=== PATIENT | female | born 2000 | race Caucasian/White ===

== ENCOUNTER 2022-01-31 18:48 | Emergency (ER) | payer OTHER, SELFPAY ==
[2022-01-31 18:50] VITALS: BP 129/84; PULSE 116; RESP 18; TEMP 37.5; O2SAT 97; BMI 20.5
[2022-01-31 19:16] LABS: COVID-19 Test Negative (Negative); IDNOW Serial# 16C4AD1C; Influenza A Positive (Negative); Influenza B2 Negative (Negative)
--- NOTE | 2022-01-31 19:19 | ED.URI ---
HPI - URI/Sore Throat General Chief Complaint: Upper Respiratory Symptoms Stated Complaint: body aches/congestion Source: patient Mode of arrival: ambulatory Limitations: no limitations History of Present Illness HPI Narrative: 21-year-old female presents with congestion, body aches, and headache since Wednesday started with subjective fevers yesterday. MD elicited complaint: fever and nasal congestion Onset (ago): day(s) (2) Consistency: constant Severity: moderate Description of mucous: clear Able to tolerate fluids by mouth: Yes Exacerbating factors: nothing Relieving factors: nothing Context: sick contacts Associated symptoms: fever, chills, myalgias, headache and nasal congestion Treatments prior to arrival: none Related Data Allergies Allergy/AdvReac Type Severity Reaction Status Date / Time SEASONAL ALLERGIES Allergy Mild WATERY Uncoded 01/31/22 18:54 ITCHY EYES SNEEZING Review of Systems Review of Systems: Constitutional: Positive Fever, positive Chills ENT/Mouth: No Ear Pain, No Hoarseness, No sore throat Eyes: No Eye Pain, No Swelling, No Redness, No Foreign Body Cardiovascular: No Chest Pain, No SOB Respiratory: No Cough, No Dyspnea Gastrointestinal: No Nausea, No Vomiting, No Diarrhea, No abdominal Pain Genitourinary: No Dysuria, No Hematuria Musculoskeletal: No joint pain, positive Myalgias, No Joint Swelling Skin: No Skin lacerations, No rash Neuro: No Weakness, No Numbness, No Paresthesias, No Loss of Consciousness, No Dizziness, positive Headache Psych: No Anxiety/Panic, No Depression Heme/Lymph: no easy bruising, no Lymphadenopathy Endocrine: No Polyuria, No Polydipsia Yes all other systems are reviewed and are negative [facility] Past Medical History Attestation statement: The following information was validated with the patient. Source: old records reviewed Medical History No known health problems Social History Social History Advance Directives: No Patient : No Physical Exam Vital Signs: Vital Signs: Last Vital Signs Temp 99.5 F 01/31/22 18:50 Pulse 104 H 01/31/22 19:45 Resp 17 01/31/22 19:45 BP 129/84 01/31/22 18:50 Pulse Ox 98 01/31/22 19:45 BMI result Body Mass Index 20.5 Appearance: Alert. Oriented X3. No acute distress. Eyes: Pupils equal, round and reactive to light. ENT: Pharynx normal. Neck: Normal inspection. Neck supple. CVS: Tachycardic heart rate and rhythm. Pulses normal. Respiratory: No respiratory distress. Breath sounds normal. Abdomen: Soft and nontender. Skin: Skin warm and dry. Normal skin color. Normal skin turgor. Extremities: No lower extremity edema. Gait well-balanced well coordinated. Neuro: No motor deficit. No sensory deficit. Cranial nerves 2-12 intact. Course Course Course Narrative: 21-year-old female presents with 2 days of flu-like symptoms. Patient is afebrile and nontoxic appearing. Able to eat and drink without difficulty. Tested positive for influenza A while in the emergency department waiting room. Will provide supportive measures and discharged home. MDM - URI/Sore Throat Differential Diagnosis Differential diagnosis: Likely upper respiratory infection, viral infection and influenza Medical Records Attestation: I reviewed the patient's medical records. Lab Data Attestation: I reviewed the patient's lab results. Labs: Lab Results 01/31/22 01/31/22 Range/Units 18:55 18:55 COVID-19 (NIKKI) Negative (Negative) COVID-19 Clin Com See Note Influenza Type A (ALBERTO) Positive A (Negative) Influenza Type B (ALBERTO) Negative (Negative) Influenza A & B Note See Note Discharge Plan Discharge Clinical Impression: Influenza Patient Disposition: Home, Self-Care Instructions: Influenza (ED) Additional Instructions: You were evaluated for upper respiratory symptoms. You tested positive for influenza A. Please alternate Tylenol 650 mg every 6 hours and Motrin 600 mg every 6 hours as needed for muscle aches and fever management. Drink plenty of fluids. Thank you for choosing this emergency department for evaluation. Please follow-up with primary care physician as needed. Return to the emergency department for any new, concerning, or worsening symptoms. Stand Alone Forms: Work/School Release Interventions: ED Discharge Assessment Last Done: 01/31/22 19:45 Discharge Date/Time: 01/31/22 19:47
[2022-01-31 19:45] VITALS: PULSE 104; RESP 17; O2SAT 98
== END 2022-01-31 19:47 | disposition home or self-care (01) ==
PROVIDERS: Emergency Provider Emergency Medicine Emergency Medical Services; PCP Pediatrics
DX: J10.1 Influenza due to other identified influenza virus with other respiratory manifestations (principal); Z20.822 Contact with and (suspected) exposure to COVID-19
CPT/HCPCS: 87502; 87635; 99283

== ENCOUNTER 2025-07-23 15:23 | Outpatient (AMB) | payer OTHER, SELFPAY ==
--- NOTE | 2025-07-23 15:28 | A.OFFPC_ITS ---
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 Sensing Technologist Required: No Accompanied by: Self / Same As Patient Allergies SEASONAL ALLERGIES Allergy (Mild, Uncoded 01/31/22 18:54) WATERY ITCHY EYES SNEEZING Tobacco use date assessed: 07/23/25 Dental Screening Dental Screen Date: 07/23/25 Did you have a dental visit in the last 12 months?: Yes Did you have a dental problem in the last 6 months where you did not have access to dental care?: No Was dental information given to patient?: Patient has dentist HPI HPI Comments History of Present Illness Details History of Present Illness The patient is a 25-year-old female presenting for a physical examination and evaluation of multiple concerns including back pain, migraines, and anxiety. Back pain: - The patient reports experiencing diffu se back pain affecting the entire back, which disrupts her sleep and requires hot showers for relief. - There is no history of trauma or scoli osis, but a family history of fibromyalgia is noted. Migraine: - The patient experiences severe migrain es characterized by light sensitivity and the need to be in a dark environment. - She has not seen a specialist but uses [id number] ibuprofen for relief. Anxiety: - The patient reports high levels of anx iety, exacerbated in public settings, and has a history of anxiety in the family. - She has not been on medication and pre fers non-pharmacological interventions. Heavy menstrual bleeding: - The patient reports lifelong heavy men strual bleeding without a known family history of fibroids. Earwax buildup: - The patient frequently experiences ear wax buildup requiring medical intervention for removal. Review of Systems - Musculoskeletal: Reports diffuse back pain disrupting sleep. - Neurological: Reports severe migraines with light sensitivity. - Psychiatric: Reports high levels of an xiety, exacerbated in public settings. - Hematologic: Reports heavy menstrual b leeding. - ENT: Reports frequent earwax buildup. 10-point ROS reviewed and negative excep t as noted in HPI Past Medical History - No significant past medical history re ported. Health Maintenance - Preventative care: Comprehensive metab olic panel, CBC, thyroid function tests, hepatitis B and C, HIV, lipid panel, vitamin D, B12, folate, and STI screening discussed. Physical Exam General: Well-appearing, in no acute distress. Vital signs: Within normal limits. HEENT: Normocephalic, atraumatic. PERRLA, EOMI. Conjunctiva clear, sclera anicteric. Oropharynx clear, mucous membranes moist. TMs intact bilaterally. Noted buildup of ear wax; Debrox recommended. Neck: Supple, no lymphadenopathy, no thyromegaly, no JVD or carotid bruits. Cardiovascular: RRR, normal S1/S2, no murmurs, rubs, or gallops. Peripheral pulses 2+ and symmetric. No edema. Respiratory: Lungs clear to auscultation bilaterally, no wheezes, rales, or rhonchi. Normal effort. Abdomen: Soft, non-tender, non-distended. Normoactive bowel sounds. No hepatosplenomegaly, no masses. MSK: Full range of motion, no joint swelling or deformity. Normal gait. Reports generalized back pain, particularly in the traps and lower back, affecting sleep and comfort. Skin: Warm, dry, intact. No rashes, lesions, or pallor. Neuro: Alert and oriented x3. Cranial nerves II-XII intact. Strength 5/5 throughout. Sensation intact. Reflexes 2+ symmetric. Normal coordination and gait. Reports severe migraines with light sensitivity. Psych: Reports high levels of anxiety, worsened by public situations and driv ing. Appropriate mood and affect. Normal judgment and insight. Referral to behavioral health suggested. Plan 1. Back Pain - A follow-up visit is recommended to ev aluate for fibromyalgia, given the family history and symptoms. 2. Migraine - The patient is advised to maintain a m igraine journal to identify potential triggers and patterns. - Ibuprofen 800 mg is prescribed for sym ptomatic relief. 3. Anxiety - Referral to behavioral health for ther apy is recommended. - The patient prefers non-pharmacologica l interventions for anxiety management. 4. Heavy Menstrual Bleeding - Blood tests will be conducted to asses s for anemia due to heavy menstruation. 5. Earwax Buildup - Debrox is recommended for earwax remov al, with instructions on proper use provided. Discussion Notes During the visit, we discussed the patient's back pain, migraines, anxiety, and heavy menstrual bleeding. I recommended a comprehensive metabolic panel and other blood tests to rule out any underlying conditions contributing to her symptoms. We also talked about the importance of maintaining a migraine journal to identify triggers and patterns. For her anxiety, I suggested a referral to behavioral health for therapy, emphasizing non-pharmacological interventions. Additionally, I provided instructions on using Debrox for earwax removal and discussed the potential need for a follow-up visit to evaluate for fibromyalgia. Patient was informed and verbally consented to the use of an ambient scribe for clinic note documentation during this visit. Patient Instructions - Follow up with behavioral health for t herapy regarding anxiety. - Use Debrox as directed for earwax andrew gauri. - Maintain a migraine journal to track p otential triggers and patterns. - Schedule a follow-up visit to discuss fibromyalgia evaluation. - Complete blood tests as ordered to ass ess overall health and rule out underlying conditions. Total time spent caring for the patient today was 30 minutes. This includes time spent before the visit reviewing the chart, time spent documenting, and time spent performing a medically necessary evaluation, counseling on diagnoses, care coordination, ordering appropriate tests, ordering appropriate medications, [facility] Medical History (Updated 07/23/25 @ 15:47 by Tiburcio Calix MD) Anxiety No known health problems Family History (Updated 07/23/25 @ 15:35 by Domingo Phillips MA) Father No problems noted. Mother Fibromyalgia Social History (Updated 07/23/25 @ 15:34 by Domingo Phillips MA) Housing: House Alcohol intake: current Alcohol intake frequency: does not drink Patient Tobacco Use Status: Never used Tobacco service: No Current occupational status: employed Cognitive needs: No Hearing needs: No Vision needs: No Questionnaire PHQ-9 Over the last 2 weeks, how often have you been bothered by any of the following problems? 1. Little interest or pleasure in doing things: several days 2. Feeling down, depressed, or hopeless: several days 3. Trouble falling or staying asleep, or sleeping too much: several days 4. Feeling tired or having little energy: more than half the days 5. Poor appetite or overeating: more than half the days 6. Feeling bad about yourself - or that you are a failure or have let yourself or your family down: several days 7. Trouble concentrating on things, such as reading the newspaper or watching television: not at all 8. Moving or speaking so slowly that other people could have noticed. Or the opposite - being so fidgety or restless that you have been moving around a lot more than usual: not at all 9. Thoughts that you would be better off or of hurting yourself in some way: not at all Total score: 8 Source: Developed by Drs. Cristhian Wilkinson, Katina Perez, Lionel Gurrola and colleagues, with an educational mary from [employer]. Thrive Questionnaire Date Thrive assessed: 07/23/25 I am a: Patient What is your living situation today?: I have a steady place to live Within the past 12 months, did the food you bought not last and you didn't have the money to get more?: Never true Within the past 12 months, did you worry whether your food would run out before you got money to buy more?: Never true Do you have trouble paying for medicines?: I choose not to answer this question Do you have trouble getting transportation to medical appointments?: No Do you have trouble paying your heating and electricity bill?: I choose not to answer this question Do you have trouble taking care of your child, family member or friend?: No Do you have trouble with day-to-day activities such as bathing, preparing meals, shopping, managing finances, etc.?: No Are you currently unemployed and looking for a job?: No Are you interested in more education?: I choose not to answer this question Please select the resources that you would like help with: None Currently or been in a relationship where the following occur: No concerns reported THRIVE Score: 0 AUDIT C Alcohol Use Questionnaire (AUDIT-C) 1. How often do you have a drink containing alcohol?: Monthly or less 2. How many drinks containing alcohol do you have on a typical day when you are drinking?: 1 or 2 3. How often do you have six or more drinks on one occasion?: Never Total Score: 1 PANCHO-7 AMB Questionnaire PANCHO-7 Date PANCHO - 7 assessed: 07/23/25 Feeling nervous, anxious, or on edge: 3 = Nearly every day Not being able to stop or control worryin = Nearly every day Worrying too much about different things: 2 = More than half the days Trouble relaxin = Several days Being so restless that it is hard to sit still: 2 = More than half the days Becoming easily annoyed or irritable: 2 = More than half the days Feeling afraid as if something awful might happen: 1 = Several days Total PANCHO-7 score (0-4 normal; 5-9 mild; 10-14 moderate; 15-21 severe): 14 Source: Developed by Drs. Cristhian Wilkinson, Katina Perez, Lionel Gurrola and colleagues, with an educational mary from [employer]. Physical exam (Primary Care) Vital Signs: Last Vital Signs Temp 98.3 F 07/23/25 15:32 Pulse 72 07/23/25 15:32 Resp 16 07/23/25 15:32 BP 106/58 L 07/23/25 15:32 Pulse Ox 99 07/23/25 15:32 Oxygen Delivery Method Room Air 07/23/25 15:32 BMI result Body Mass Index 22.8 Tobacco/Smoking Status: Tobacco use Status Tobacco use date assessed 07/23/25 07/23/25 15:30 Patient Tobacco Use Status Never used Tobacco 07/23/25 15:34 PHQ-9: PHQ-9 Score PHQ-9: Total score 8 07/23/25 15:30 Thrive Assessment: Date of Thrive Assessment Date Thrive assessed 07/23/25 07/23/25 15:30 Currently or been in a relationship where the following occur: No concerns reported Coding Level of Care Code New Pt Level 4 (00564) Diagnoses Anxiety F41.9 Back pain M54.9 Menorrhagia N92.0 Migraine G43.909 Bilateral impacted cerumen H61.23 Assessment & Plan Assessment & Plan (1) Anxiety: Code(s): F41.9 - Anxiety disorder, unspecified Category: Medical (2) Back pain: Code(s): M54.9 - Dorsalgia, unspecified (3) Menorrhagia: Code(s): N92.0 - Excessive and frequent menstruation with regular cycle (4) Migraine: Code(s): G43.909 - Migraine, unspecified, not intractable, without status migrainosus (5) Bilateral impacted cerumen: Code(s): H61.23 - Impacted cerumen, bilateral Plan Orders: Orders Complete Blood Count Auto Diff Today Z13.9 - Encounter for screening, unspecified Hepatitis C Antibody Today Z13.9 - Encounter for screening, unspecified TSH reflex Free T4 Today Z13.9 - Encounter for screening, unspecified Vitamin D 1,25 dihydroxy Today Z13.9 - Encounter for screening, unspecified CT NG by PCR Urine Today Z13.9 - Encounter for screening, unspecified Syphilis Screen Today Z13.9 - Encounter for screening, unspecified Comprehensive Met. Panel Today Z13.9 - Encounter for screening, unspecified Hemoglobin A1c Today Z13.9 - Encounter for screening, unspecified Hepatitis B Surface Antibody Today Z13.9 - Encounter for screening, unspecified Hepatitis B Surface Antigen Today Z13.9 - Encounter for screening, unspecified HIV Ab/Ag Today Z13.9 - Encounter for screening, unspecified Lipid Panel Today Z13.9 - Encounter for screening, unspecified Magnesium Today Z13.9 - Encounter for screening, unspecified UA CC w/rflx Micro + Cult Today Z13.9 - Encounter for screening, unspecified Vitamin B12 and Folate Today Z13.9 - Encounter for screening, unspecified Chlamydia Species Ab Panel Today Z13.9 - Encounter for screening, unspecified Referrals Nurse Navigator Referral F41.9 - Anxiety disorder, unspecified, Z13.9 - Encounter for screening, unspecified Medications: New ibuprofen 800 mg PO Q8H 30 tabs 0RF carbamide peroxide 6.5% (Debrox) 5 drps otic (ears) Q12H 15 mL 0RF 4 days
[2025-07-23 15:32] VITALS: BP 106/58; PULSE 72; RESP 16; TEMP 36.8; O2SAT 99; BMI 22.8
--- OUTSIDE RECORDS SUMMARY | 2025-07-23 17:48 | XMS_ITS | Encounter Summary ---
Author Organization [facility] Address [address] [place] [address] Phone Care Team Providers Care Batch Records Clerk Name Role Phone Martha Miller MD Primary Care Provider [phone] Encounter Details Date Type Department Care Team (Late st Contact Info) Description 06/03/2017 Conversion Encounter [facility] [address] [place] [address] Social History Tobacco Use Types Packs/Day Years Used Date Smoking Tobacco: Never Comments:Never smoker Comments Unknown Sex and Gender Information Value Date Recorded Sex Assigned at Not on file Legal Sex Female 5:09 PM EDT Gender Identity Female 12/16/2020 10:15 AM EST Sexual Orientation Straight 05/06/2022 2: 59 PM EDT documented as of this encounter Plan of Treatment Not on file documented as of this encounter Visit Diagnoses Not on filedocumented in this encounter Care Teams Batch Records Clerk Relationship Specialty Start Date End Date Martha Miller MD [address] [place] [address] PCP - General 05/28/17 05/24/23 documented as of this encounter
--- OUTSIDE RECORDS SUMMARY | 2025-07-23 17:48 | XMS_ITS | Clinical Summary ---
Author Organization [facility] Address [address] [place] [phone] Phone Care Team Providers Care Call Center Rn Name Role Phone Unavailable Primary Care Provider Unavailabl e Allergies Active Allergy Reactions Criticality Noted Date Comments Environmental 02/20/2020 Itchy eyes/throat, sneezing Medications ibuprofen 200 MG capsuleIndicatio ns:Acute URI Take 2 capsules (400 mg total) by mouth every 6 (six) hours as needed for pain or fever (For fever or pain). 120 capsule 7 Active Additional Information Patient not taking.Reported on 09/25/2022 fluticasone (Flonase) 50 MCG/ACT nasal sprayIndications :Allergic rhinitis, unspecified seasonality, unspecified trigger Administer 2 sprays into each nostril daily. 1 Units 5 0 Active Additional Information Patient not taking.Reported on 08/20/2021 loratadine (Claritin) 10 MG tabletIndication s:Allergic rhinitis, unspecified seasonality, unspecified trigger Take 1 tablet (10 mg total) by mouth daily. 30 tablet 5 2 Active Additional Information Patient not taking.Reported on 09/25/2022 spironolactone 100 MG tabletIndication s:Acne vulgaris Take 1 tablet (100 mg total) by mouth daily. 30 tablet 3 2 Active cetirizine (ZyrTEC Allergy) 10 MG tabletIndication s:Seasonal allergic rhinitis due to pollen Take 1 tablet (10 mg total) by mouth nightly as needed for allergies. 30 tablet 6 2 Active tretinoin 0.025 % creamIndications :Acne vulgaris Apply topically nightly. 45 g 2 Active Additional Information Patient not taking.Reported on 09/25/2022 Active Problems Problem Noted Date Diagnosed Date Refused influenza vaccine 09/25/2022 Bilateral impacted cerumen 07/28/2022 Personal history of COVID-19 10/30/2021 Overview (10/30/2021): 10/27/21 -mild illness Assessment & Plan (02/04/2022 8:55 AM EDT): 10/27/21 -mild illness COVID-vaccine strongly encouraged today but declined Generalized abdominal pain 05/20/2021 Assessment & Plan (08/20/2021 4:42 PM EDT): Labs done May 2021 were normal Patient did not keep her GI appointment. The medical home lighting adviser, Delano Gooden, has been trying to reach patient to help her set up her GI appointment but Krzysztofalber feels she is too busy with work. Overall she feels like her stomach is better and she does not need to see GI. Assessment & Plan (05/20/2021 11:24 AM EDT): Labs have been normal 09/2019. Will repeat prior to GI eval so they have more recent values. She is due for lipids & CBC that were ordered 05/06/21 but not obtained Has appointment with GI for first eval 05/23/21 DUB (dysfunctional uterine bleeding) 05/06/2021 Overview (05/06/2021): 1st Depo was 11/29/19. 2nd depo was 02/15/20. Did not keep appt for 3rd dose. Forgot to get it. Restarted Depo 06/26/20 Assessment & Plan (05/06/2022 2:58 PM EDT): Here for Depo today. Depo ordered 150 mg IM x1 Next dose of Depo in 3 months. Patient started Depo 11/29/2019 but was lost to follow-up and restarted on 06/26/2020. This fall she will be 2 years on Depo. Discussed with Ignacia that she should start thinking about other options such as Nexplanon or an IUD. Bone health reviewed. Safe sex reviewed. Assessment & Plan (08/20/2021 4:42 PM EDT): Uses Depo for her periods. Gets her menses around the time she is due for Depo. Usually just spots. Wishes to continue Depo. Follow-up in 3 months for next Depo Assessment & Plan (05/20/2021 11:37 AM EDT): Depo 150 mg IM given. Ignacia Thornton brought her own Depo with her today Next appointment for Depo is in 3 months Denies SA - ever Assessment & Plan (05/06/2021 10:59 AM EDT): Last Depo was 03/04/2021. Is on Depo for dysfunctional uterine bleeding, is not sexually active. Could not remember to take OCPs so decided to switch to Depo 11/2019. Due for Depo next month, first available day May 20 Counseling and coordination of care 05/06/2021 Assessment & Plan (05/20/2021 11:36 AM EDT): [facility] with [facility]ano Gooden, today Needs help connecting with chiropractor. Feels like she has a pinched nerve in her neck. We have discussed contacting the chiropractor in the past but she has been too busy to do this. She feels the chiropractor really helps. We will ask the medical home lighting adviser to assist her in setting up this appointment Acne vulgaris 12/17/2020 Assessment & Plan (05/17/2021 2:00 PM EDT): Offered OCP; she prefers to stay on Depo for contraception. Will start spironolactone 100 mg daily. CeraVe cleanser. Continue tretinoin qHS. Assessment & Plan (05/06/2021 10:58 AM EDT): Tretinoin, Clindagel and benzyl peroxide gel were last filled 08/05/2020 No current issues, no current meds Assessment & Plan (12/17/2020 11:30 AM EST): Using daily but last refilled 08/05/20 Out of one of the meds but Ignacia not sure which one Offered minocin but patient says she already has issues with ARORA & stomach issues so decided to wait on oral meds Ignacia will call with name of med to refill. Encourage daily use OK to schedule with derm if no better in 1 month Mask wearing may be triggering acne Anxiety disorder 08/04/2020 Assessment & Plan (05/06/2021 10:58 AM EDT): Was seen at [facility] in the past. No current therapist. Ignacia feels she does not need to see anybody at this time Encounters Date Type Department Care Team Description 07/23/2025 Telephone [facility] [address] [id number] Angie Murdock MD Medical Records 07/20/2025 Telephone [facility] [address] [place] [address] Angie Murdock MD medical records from Last 3 Months Immunizations Immunization Administration Dates Next Due DTaP 5 01/13/2007, 4,2002,08/07,2002 HPV Vaccine 9 Valent 06/25/2015 HPV, Quadrivalent 06/26/2014,04/10/2013 Hep A, ped/adol 06/25/2015,06/26/2014 Hep B, ped/adol 03/06/2003,2002,2002 Hib (PRP-T) 01/21/2004, 3,2002,06/13 IPV 01/13/2007, 3,2002,06/13 Influenza, injectable, quadrivalent 07/23/2016 Influenza, injectable, quadr ivalent, preservative free 06/26/2020,09/23/2018,06/25/2015,06/26 MMR 06/06/2003 MMRV 01/13/2007 Meningococcal Conj (Menactra) MCV4P 09/23/2018,0 04/10/2013 Pneumococcal Conjugate 07/13/2005,2002,2002,06/13 Tdap 04/10/2013 Varicella 06/06/2003 Family History Medical History Relation Name Comments Asthma Brother Amador No Known Problems Father Guicho No Known Problems Half-Sister No Known Problems Mother Vikki No Known Problems Sister Vikki Relation Name Status Comments Brother Amador Alive Father Guicho Alive Father: Alive a nd well Half-Brother Alive Half brother (P ): cleft palate, Alive and well Half-Sister Alive Half sister (P) : Alive and well Mother Vikki Alive Mother: Alive a nd well Other Family history of Elevated cholesterol, Family history of Asthma, Family history of Diabetes mellitus, Family history of Seizure disorder Sister Vikki Alive Social History Tobacco Use Types Packs/Day Years Used Date Smoking Tobacco: Never Smokeless Tobacco: Never Comments:Never smoker Alcohol Use Standard Drinks/Week Comments No 0 (1 standard drink = 0.6 oz pur e alcohol) Hunger/Food Answer Date Recorded In the last 12 months, did y ou or your family ever eat less than you felt you should because there wasn't enough money for food? No 05/05/2021 Stable Housing Answer Date Recorded Are you worried that in the next 2 months you may not have stable housing? No 05/05/2021 Transportation Concerns Answer Date Rec orded In the last 12 months, have you or your family ever had to go without healthcare because you didn't have a way to get there? No 05/05/2021 Hazards in Home Answer Date Recorded Think about the place you li ve. Do you have problems with any of the following? Pests (mice or roaches), mold, no/not working smoke detectors, water leaks, no window guards. No 2020 Financing Utilities Answer Date Recorde d In the last 12 months, has t he electric, gas, oil, or water company threatened to shut off your services in your home? No 05/05/2021 Safety at Home Answer Date Recorded Are you or your family worried about feeling saf e in your home? No 05/05/2021 Outside Support Answer Date Recorded Do you feel that you need mo re support from other people or programs to help you care for yourself or your family? No 05/05/2021 Understanding Health Concerns Answer Da te Recorded Do you need help understandi ng your or your child's healthcare needs (diagnosis, medications, plan, etc.)? No 05/05/2021 Financing Health Concerns Answer Date R ecorded In the last 12 months, was t here a time when your child needed to see a doctor or get medications or supplies but could not because of cost? No 05/05/2021 Missing School or Work Answer Date Jg rded Did you or your child miss s chool or work because of a health problem that could have been avoided? No 05/05/2021 Comments No Sex and Gender Information Value Date Recorded Sex Assigned at Not on file Legal Sex Female 5:09 PM EDT Gender Identity Female 12/16/2020 10:15 AM EST Sexual Orientation Straight 05/06/2022 2: 59 PM EDT Last Filed Vital Signs Vital Sign Reading Time Taken Comments Blood Pressure 106/69 09/25/2022 2:48 PM EST Pulse 73 09/25/2022 2:48 PM EST Temperature 36.8 C (98.3 F) 09/25/2022 2:48 PM EST Respiratory Rate - - Oxygen Saturation - - Inhaled Oxygen Concentration - - Weight 49.4 kg (109 lb) 09/25/2022 2:48 PM EST Height 154.3 cm (5' 0.75 ) 06/11/2022 11:30 AM E DT Body Mass Index 20.77 06/11/2022 11:30 AM EDT Plan of Treatment Health Maintenance Due Date Last Done Comments HIV Screening 2017 Men B Vaccine (1 of 2 - Standard) 2018 Hepatitis C Screening 2020 DTaP,Tdap,and Td Vaccines (7 - Td or Tdap) 04/10/2023 04/10/2013, 01/13/2007, 01/21/2004, Additional history exists Chlamydia and Gonorrhea Screening 10/18/2024 06/11/2022, 05/06/2022, 05/06/2021, Additional history exists Influenza Vaccines (#1) 2025 06/26/20, 09/23/2018, 07/23/2016, Additional history exists COVID-19 Vaccine (1 - 2024-2 6 season) 2025 Hepatitis B Vaccines Completed 03/06/2003, 2002, 2002 HIB Vaccines Completed 01/21/2004, 10/18, 2002, Additional history exists Pneumococcal Vaccine Completed 07/13/2005, 2002, 2002, Additional history exists IPV Vaccines Completed 01/13/2007, 02/16, 2002, Additional history exists MMR Vaccines Completed 01/13/2007, 06/06/2003 Varicella Vaccines Completed 01/13/2007, 06/06/2003 HPV Vaccines Completed 06/25/2015, 06/2014, 04/10/2013 Hepatitis A Vaccines Completed 06/25/2015, 06/26/20 14 Meningococcal Vaccine Completed 09/23/2018, 013 Procedures * Due to [facility] law, this organization might not be sharing sensitive test results. Procedure Name Priority Date/Time Associated Diagnosis Comments CHLAMYDIA AND GONORRHEA, AMPLIFIED Routine 06/11/2022 12:06 PM EDT Encounter for screening examination for chlamydial infection from Last 3 Months or Most Recently Relevant to Health Maintenance Results * Due to [place] law, this organization might not be sharing sensitive test results. * Chlamydia and Gonorrhoea, Amplified (06/11/2022 12:06 PM EDT) Chlamydia Trachomatis, DNA Probe NEGATIVE (NEG) [facility] Comment: No Chlamydia Trachomatis RNA detected in this patient's sample (REFERENCE RANGE/NORMAL VALUE: NOT DETECTED) Note: This test uses oil lease broker- mediated amplification method to detect rRNA from C. Trachomatis URINE GC AMP PROBE NEGATIVE (NEG) [facility] Comment: No Neisseria Gonorrhoeae RNA detected in this patient's sample (REFERENCE RANGE/NORMAL VALUE: NOT DETECTED) NOTE: This test uses oil lease broker-mediated amplification method to detect rRNA from N.Gonorrhoeae. A negative result does not preclude infection. In the case of a negative urine result, testing of an endocervical(female) or urethral (male) specimen is recommended if there is high clinical suspicion of infection. Due to very high sensitivity of Nucleic Acid Amplification Test, false positive results may occur. Therefore, specimen handling is extremely important. In patients in whom the disease is unlikely, additional sample for testing should be considered after an initial positive result. The performance characteristics of this test have not been evaluated in children. The Aptima Combo2 assay is not intended for the evaluation of suspected sexual abuse or for other medico-legal indications. The ordering provider should assess if the patient had consensual sex without risk of sexual abuse. Consult the [facility] if needed. Contact phone number . Therapeutic failure or success cannot be determined with the Aptima Combo2 assay since nucleic acid may persist following appropriate antimicrobial therapy. The Centers for Disease Control and Prevention (CDC) recommends confirmatory retesting using culture or a different nucleic acid amplification test when positive results occur, if indicated. Testing performed or reported by [facility], a Service of [facility], [address], [place] [address] Tho Reynolds MD, Culled Fruit Packer [facility]# [id number] Urine (Urine) 06/11/2022 12: 06 PM EDT 06/11/2022 9:40 PM EDT us Adriana Wilson DO LAB MICROBIOLOGY - GENERAL ORDER SANG Final Result [facility] from Last 3 Months or Most Recently Relevant to Health Maintenance
--- OUTSIDE RECORDS SUMMARY | 2025-07-23 17:48 | XMS_ITS | Encounter Summary ---
Author Organization [facility] Address [address] [place], [place] [id number] Phone Care Team Providers Care Clean Up Supervisor Name Role Phone Martha Miller MD Primary Care Provider [phone] Reason for Visit * Reason Comments Med Refill Encounter Details Date Type Department Care Team ([facility] st Contact Info) Description 12/16/2020 Refill [facility] [address] [place] [address] Martha Miller MD [address] [place] [address] Encounter for initial prescription of injectable contraceptive Social History Tobacco Use Types Packs/Day Years Used Date Smoking Tobacco: Never Smokeless Tobacco: Never Comments:Never smoker Alcohol Use Standard Drinks/Week Comments No 0 (1 standard drink = 0.6 oz pur e alcohol) Hunger/Food Answer Date Recorded No 07/13/2020 Stable Housing Answer Date Recorded No 07/13/2020 Transportation Concerns Answer Date Rec orded No 07/13/2020 Hazards in Home Answer Date Recorded No 08/31/2020 Financing Utilities Answer Date Recorde d No 08/31/2020 Safety at Home Answer Date Recorded No 08/31/2020 Outside Support Answer Date Recorded No 08/31/2020 Understanding Health Concerns Answer Da te Recorded No 08/31/2020 Financing Health Concerns Answer Date R ecorded No 08/31/2020 Missing School or Work Answer Date Jg rded No 08/31/2020 Comments No Sex and Gender Information Value Date Recorded Sex Assigned at Not on file Legal Sex Female 5:09 PM EDT Gender Identity Female 12/16/2020 10:15 AM EST Sexual Orientation Straight 05/06/2022 2: 59 PM EDT documented as of this encounter Miscellaneous Notes * Telephone Encounter - Janis Roldan LPN - 12/17/2020 8:54 AM EST Duplicate request documented in this encounter Plan of Treatment Not on file documented as of this encounter Visit Diagnoses Diagnosis Encounter for initial prescription of injectable contraceptive documented in this encounter Care Teams Clean Up Supervisor Relationship Specialty Start Date End Date Martha Miller MD [address] [place] [address] [place] [address] PCP - General 05/28/17 05/24/23 documented as of this encounter
--- OUTSIDE RECORDS SUMMARY | 2025-07-23 17:48 | XMS_ITS | Encounter Summary ---
Author Organization [facility] Address [address] [place] [phone] Phone Care Team Providers Care Furniture Installer Name Role Phone Unavailable Primary Care Provider Unavailabl e Reason for Visit * Reason Onset Date Comments Medical Records 07/23/2025 Encounter Details Date Type Department Care Team ([facility] Contact Info) Description 07/23/2025 Telephone [facility] [place] [address] [place] [address] Angie Murdock MD [address] [place] [address] Medical Records Social History Tobacco Use Types Packs/Day Years [...] encounter Miscellaneous Notes * Telephone Encounter - Elsa Buckley - 07/23/2025 9:49 AM EDT Authorization for Release of Records received on 07/17/25 completed by Patient. Records Faxed on 07/23/25 by Elsa Buckley. Records Faxed to [facility] at [phone] to/by Elsa Buckley on 07/23/25. documented in this encounter Plan of Treatment Not on file documented as of this encounter Visit Diagnoses Not on filedocumented in this encounter
--- OUTSIDE RECORDS SUMMARY | 2025-07-23 17:48 | XMS_ITS | Encounter Summary ---
Author Organization [facility] Address [address] [place] [address] Phone Care Team Providers Care Hydraulic Plumber Helper Name Role Phone Martha Miller MD Primary Care Provider [phone] Reason for Visit * Reason Onset Date Comments Med Refill 03/03/2021 Encounter Details Date Type Department Care Team ([facility] st Contact Info) Description 03/03/2021 Refill [facility] [place] [address] [place] [address] Martha Miller MD [address] [place] [address] Encounter for initial prescription of injectable contraceptive [...] contraceptive documented in this encounter Care Teams Hydraulic Plumber Helper Relationship Specialty Start Date End Date Martha Miller MD [address] [facility] [place] [address] PCP - General 05/28/17 05/24/23 documented as of this encounter
--- OUTSIDE RECORDS SUMMARY | 2025-07-23 17:48 | XMS_ITS | Encounter Summary ---
Author Organization [facility] Address [address] [place] [phone] Phone Care Team Providers Care Program Admin Name Role Phone Unavailable Primary Care Provider Unavailabl e Reason for Visit * Reason Onset Date Comments medical records 07/20/2025 Encounter Details Date Type Department Care Team ([facility] Contact Info) Description 07/20/2025 Telephone [facility] [place] [address] [place] [address] Angie Murdock MD [address] [place] [address] medical records Social History Tobacco Use Types Packs/Day Years [...] Telephone Encounter - Elsa Buckley - 07/23/2025 9:23 AM EDT PT called back stating she will come into the office this morning to sign the Release so we can send over the records since she has a appointment today at 3 with her new PCP * Telephone Encounter - Annette Matthews - 07/23/2025 9:18 AM EDT Left message to call back the office we need patient to sign the release it was not signed so we can send the whole record. I placed the release and the transfer out records in the transfer out issuefolder in meantime. * Telephone Encounter - Johnathon Day - 07/20/2025 4:42 PM EDT Received incoming call from mom requesting phys/imm sent to future provider while they are waiting for full records to be sent, phys/imm faxed to [phone]. Pt gave verbal permission for phys/imm documented in this encounter Plan of Treatment Not on file documented as of this encounter Visit Diagnoses Not on filedocumented in this encounter
== END 2025-07-23 15:59 | disposition home or self-care (01) ==
LOC: HO.HMCFMS 15:24
PROVIDERS: PCP Student in an Organized Health Care Education/Training Program; Visit Provider Student in an Organized Health Care Education/Training Program
DX: F41.9 Anxiety disorder, unspecified (principal); M54.9 Dorsalgia, unspecified; N92.0 Excessive and frequent menstruation with regular cycle; G43.909 Migraine, unspecified, not intractable, without status migrainosus; H61.23 Impacted cerumen, bilateral

== ENCOUNTER 2025-07-23 15:23 | Outpatient (REF) | payer OTHER, SELFPAY ==
[2025-07-23 18:22] LABS: MANUAL DIFF FLAG NO
[2025-07-23 18:26] LABS: Hematocrit 41.5 % (37.0-47.0); Hemoglobin 13.9 g/dl (12.0-16.0); Imm Gran Abs Auto 0.03 X10*3/uL (0.00-0.03); Imm Gran Pct Auto 0.4 % (0.0-0.4); Lymphocytes Absolute Auto 2.6 X10*3/uL (1.2-4.9); Mean Corpuscular HGB Conc 33.5 g/dl (31.0-35.0); Mean Corpuscular Hemoglobin 29.6 pg (27.0-33.0); Mean Corpuscular Volume 88.5 fL (80.0-98.0); NRBC Abs Auto 0.000 X10*3/uL (0.0-0.012); NRBC Pct Auto 0.0 /100WBC (0.0-0.2); Platelet Count 294 X10*3/uL (160-400); Red Blood Count 4.69 X10*6/uL (4.20-5.50); White Blood Count 7.0 X10*3/uL (4.8-10.8)
[2025-07-23 18:54] LABS: Alanine Aminotransferase 20 U/L (0-31); Albumin Level 4.6 g/dL (3.5-5.0); Alkaline Phosphatase 65 U/L (39-117); Anion Gap 9 (12-20); Aspartate Amino Transferase 26 U/L (5-31); Blood Urea Nitrogen 9 mg/dL (9-16); Calcium 9.0 mg/dL (8.4-10.2); Carbon Dioxide 28 mmol/L (22-29); Chloride 106 mmol/L (96-108); Cholesterol 177 mg/dL (<200); Estimated Glomerular Filt Rate > 60; HDL Cholesterol 46 mg/dL (>40); Magnesium 2.3 mg/dL (1.6-2.6); Potassium 3.7 mmol/L (3.3-5.1); Sodium 139 mmol/L (135-145); Total Protein 7.4 g/dL (6.5-8.0); Triglycerides 100 mg/dL (<150)
[2025-07-23 19:23] LABS: Folate 10.5 ng/mL (> or = 4.0); Vitamin B12 418 pg/mL (200-900)
[2025-07-24 07:48] LABS: Syphilis Screen Nonreactive (Nonreactive)
[2025-07-24 08:35] LABS: HBS Num1 0.08 mIU/mL (0-7.99); HBsAGNum1 0.64 S/CO (0.00-0.99); HIV Num 1 0.05 S/CO (0.00-0.99); Hepatitis B Surface Antigen Negative (Negative); ~HepC Num1 0.08 S/CO (0.00-0.79); ~Hepatitis B Surface Antibody NONREACTIVE (Nonreactive); ~Hepatitis C Antibody Nonreactive (Nonreactive)
[2025-07-27 16:24] LABS: VITAMIN D (1,25 OH) D3 22 pg/mL; Vit D (1,25-Dihydroxy) Total 22 pg/mL (18-72); Vitamin D (1,25 OH) D2 <8 pg/mL
[2025-07-29 07:28] LABS: Chlamydia Trachomatis IgA <1:16 titer (<1:16)
== END 2025-07-23 15:24 | disposition home or self-care (01) ==
LOC: HO.HKASLDS 15:23
PROVIDERS: PCP Student in an Organized Health Care Education/Training Program; Visit Provider Student in an Organized Health Care Education/Training Program
DX: Z11.4 Encounter for screening for human immunodeficiency virus [HIV] (principal); F41.9 Anxiety disorder, unspecified; M54.9 Dorsalgia, unspecified; N92.0 Excessive and frequent menstruation with regular cycle; G43.909 Migraine, unspecified, not intractable, without status migrainosus; H61.23 Impacted cerumen, bilateral
CPT/HCPCS: 36415; 80053; 80061; 82607; 82652; 82746; 83036; 83735; 84443; 85025; 86631; 86632; 86706; 86780; 86803; 87340; 87389

== ENCOUNTER 2025-08-06 14:27 | Outpatient (AMB) | payer OTHER, SELFPAY ==
[2025-08-06 14:31] VITALS: BP 109/56; PULSE 72; RESP 16; TEMP 36.8; O2SAT 95; BMI 23.4
--- NOTE | 2025-08-06 14:31 | A.OFFPC_ITS ---
Vital Signs 08/06/25 14:31 Height 5 ft 0.63 in Weight 122 lb 2 oz BMI 23.4 BP 109/56 L Blood Pressure Location Lt brachial Position Sitting Respiration 16 Pulse 72 Pulse Source Pulse Oximeter Temp 98.2 F Temp Source Oral Pulse Oximetry (%) 95 Oxygen Delivery Method Room Air Intake Visit Reasons: 2 week follow up Bundle Wrapper Required: No Accompanied by: Self / Same As Patient Allergies all year round allergies Allergy (Mild, Uncoded 08/06/25 14:38) Watery Eye, sneezing, congestion Tobacco use date assessed: 08/06/25 Dental Screening Dental Screen Date: 08/06/25 Did you have a dental visit in the last 12 months?: Yes Did you have a dental problem in the last 6 months where you did not have access to dental care?: No Was dental information given to patient?: Patient has dentist HPI HPI Comments History of Present Illness Details Consent Patient was informed and verbally consented to the use of an ambient scribe for clinic note documentation during this visit. History of Present Illness The patient is a 25-year-old female presenting with a follow-up for back pain, migraines, anxiety, heavy menstrual bleeding, and allergy symptoms. Back Pain: The patient reports experiencing diffuse back pain affecting the entire back, causing sleep disruption. The pain is alleviated by hot showers. The patient denies any history of trauma or scoliosis. Family history includes fibromyalgia, which could be a contributing factor. Migraines: The patient experiences severe migraines characterized by light sensitivity. She has not sought consultation from a specialist but manages symptoms with teml-nuj-twqvdze ibuprofen. The patient was advised to maintain a migraine journal for triggers. Anxiety: The patient experiences anxiety and has not previously been on medication. She prefers non-pharmacological interventions and has been referred to behavioral health. An appointment is scheduled for the . Heavy Menstrual Bleeding: The patient reports experiencing heavy menstrual bleeding. No significant family history of conditions such as fibromyalgia was noted, except for ongoing heavy menstruation without specific intervention at this time. Allergic Rhinitis: The patient has a history of severe allergy symptoms that were reported during the visit, including congestion. Previously, a variety of antihistamines such as loratadine and cetirizine, and nasal sprays like fluticasone, were used for symptom management. Recent labs indicated elevated eosinophils which coincide with her allergy history. Surgical History: - No prior surgical procedures reported. Medications: - Ibuprofen 800 mg for migraines Social History: - The patient has a boyfriend and enjoys activities such as pumpkin and sunflower picking. Family History: - Family history of fibromyalgia symptom s Diagnostic Results: - Labs: - CBC, renal function, random gl ucose, hemoglobin A1c, liver functions within normal limits - Lipid panel: LDL mildly elevated at 11 1 mg/dL - Screening tests: Vitamin B12, vitamin D, thyroid, HIV, hepatitis B, hepatitis C all negative Review of Systems - Neuro: Reports migraines with light se nsitivity. - General: Reports anxiety without pharm acological treatment. - Reproductive: Reports heavy menstrual bleeding. - ENT: Reports ear wax buildup and aller gy symptoms such as congestion. 10-point ROS reviewed and negative excep t as noted in HPI Past Medical History - Back pain - Migraines - Anxiety Health Maintenance - Lipid panel screening: LDL elevation n oted, dietary modification recommended - Allergy management: Cetirizine and flu ticasone nasal spray for allergic rhinitis - Behavioral health referral scheduled Physical Exam General: Well-appearing, in no acute distress. Vital signs: Within normal limits. HEENT: Normocephalic, atraumatic. PERRLA, EOMI. Conjunctiva clear, sclera anicteric. Oropharynx clear, mucous membranes moist. TMs intact bilaterally. Ear wax buildup noted, Debrox given, patient has not used it yet. Neck: Supple, no lymphadenopathy, no thyromegaly, no JVD or carotid bruits. Cardiovascular: RRR, normal S1/S2, no murmurs, rubs, or gallops. Peripheral pulses 2+ and symmetric. No edema. Respiratory: Lungs clear to auscultation bilaterally, no wheezes, rales, or rhonchi. Normal effort. Abdomen: Soft, non-tender, non-distended. Normoactive bowel sounds. No hepatosplenomegaly, no masses. MSK: Full range of motion, no joint swelling or deformity. Normal gait. Reports diffuse back pain affecting the entire back, disrupting sleep, relieved by hot showers. No history of trauma or scoliosis. Skin: Warm, dry, intact. No rashes, lesions, or pallor. Neuro: Alert and oriented x3. Cranial nerves II-XII intact. Strength 5/5 throughout. Sensation intact. Reflexes 2+ symmetric. Normal coordination and gait. Reports severe migraines characterized by light sensitivity. Psych: Appropriate mood and affect. Normal judgment and insight. Anxiety noted, prefers non-pharmacological interventions. Referral to behavioral health recommended, appointment scheduled for the . Plan 1. Back Pain -continue conservative mgmt 2. Migraines - Advise maintaining a migraine journal for identifying triggers. - Continue ibuprofen 800 mg as needed fo r symptomatic relief. 3. Anxiety - Referral to behavioral health for furt her assessment and management. Appointment scheduled. 4. Heavy Menstrual Bleeding - Discussed symptoms with the patient co nt conservative mgmt 5. Ear Wax Buildup - Provide Debrox for management of ear w ax buildup. use it this time. 6. Allergic Rhinitis - Prescribed cetirizine 10 mg orally as needed for allergy symptoms. - Prescribed fluticasone nasal spray for congestion. 7. Hyperlipidemia - Discussed dietary modifications to man age mildly elevated LDL. Discussion Notes During the visit, we reviewed the patient's medical history and discussed the results of her recent tests, including the mildly elevated LDL cholesterol and allergy laboratory findings. We addressed her current problems, including back pain, migraines managed with ibuprofen, and anxiety, for which she has a behavioral health appointment. The patient?s heavy menstrual bleeding was discussed without immediate intervention planned. I clarified the meaning of her lab results including normal ranges for WBC, RBC, and cholesterol levels. We reviewed allergy management strategy with recommendations to use cetirizine and fluticasone nasal spray. I provided guidance on increasing dietary attention due to her LDL results with further evaluation planned in routine follow-ups. Additional follow-up recommended as needed. Patient Instructions - Keep a migraine journal to identify po ssible triggers. - Use Debrox drops as directed for ear w ax buildup. - Take cetirizine 10 mg as needed for al lergy symptoms and use fluticasone nasal spray daily. - Watch your diet to help manage cholest valdo levels. - Return for follow-up care or sooner if symptoms worsen. Medical Decision Making The patient presents with multiple chronic complaints including back pain potentially associated with a family history of fibromyalgia, migraines responsive to ibuprofen, anxiety for which she prefers non-pharmacological interventions, and significant allergic rhinitis, coupled with a concern for elevated LDL cholesterol. Management for migraine and anxiety follows non- pharmacological trails, whereas strictly maintaining dietary cholesterol control is recommended for mild hyperlipidemia. Allergy symptoms will be managed with cetirizine and fluticasone nasal spray. The review of systems, family history of fibromyalgia, and patient's symptomatic complaints directly influenced care plans, integrating both subjective reports and objective test results. Focused behavioral health care and routine follow-up were scheduled, with additional intervention needs depending on developments in presenting symptoms. Total time spent caring for the patient today was 30 minutes. This includes time spent before the visit reviewing the chart, time spent documenting, and time spent reviewing laboratory results, diagnostic imaging, medications, performing a medically necessary evaluation, counseling on diagnoses, care coordination, ordering appropriate tests. [facility] Medical History (Updated 07/23/25 @ 15:47 by Tiburcio Calix MD) Anxiety No known health problems Family History Father No problems noted. Mother Fibromyalgia Social History Housing: House Alcohol intake: current Alcohol intake frequency: does not drink Patient Tobacco Use Status: Never used Tobacco service: No Current occupational status: employed Cognitive needs: No Hearing needs: No Vision needs: No Questionnaire Thrive Questionnaire Date Thrive assessed: 08/06/25 I am a: Patient What is your living situation today?: I have a steady place to live Within the past 12 months, did the food you bought not last and you didn't have the money to get more?: Never true Within the past 12 months, did you worry whether your food would run out before you got money to buy more?: Never true Do you have trouble paying for medicines?: I choose not to answer this question Do you have trouble getting transportation to medical appointments?: No Do you have trouble paying your heating and electricity bill?: I choose not to answer this question Do you have trouble taking care of your child, family member or friend?: No Do you have trouble with day-to-day activities such as bathing, preparing meals, shopping, managing finances, etc.?: No Are you currently unemployed and looking for a job?: No Are you interested in more education?: I choose not to answer this question Please select the resources that you would like help with: None Currently or been in a relationship where the following occur: No concerns reported THRIVE Score: 0 AUDIT C Alcohol Use Questionnaire (AUDIT-C) 1. How often do you have a drink containing alcohol?: Monthly or less 2. How many drinks containing alcohol do you have on a typical day when you are drinking?: 1 or 2 3. How often do you have six or more drinks on one occasion?: Never Total Score: 1 PANCHO-7 AMB Questionnaire PANCHO-7 Date PANCHO - 7 assessed: 08/06/25 Source: Developed by Drs. Cristhian Wilkinson, Katina Perez, Lionel Gurrola and colleagues, with an educational mary from [employer]. Physical exam (Primary Care) Vital Signs: Last Vital Signs Temp 98.2 F 08/06/25 14:31 Pulse 72 08/06/25 14:31 Resp 16 08/06/25 14:31 BP 109/56 L 08/06/25 14:31 Pulse Ox 95 08/06/25 14:31 Oxygen Delivery Method Room Air 08/06/25 14:31 BMI result Body Mass Index 23.4 Tobacco/Smoking Status: Tobacco use Status Tobacco use date assessed 08/06/25 08/06/25 14:36 Patient Tobacco Use Status Never used Tobacco 08/06/25 14:36 Thrive Assessment: Date of Thrive Assessment Date Thrive assessed 08/06/25 08/06/25 14:36 Currently or been in a relationship where the following occur: No concerns reported Coding Level of Care Code Est Pt Level 4 (54600) Diagnoses Back Pain M54.9 Migraine headache G43.909 Menorrhagia N92.0 Allergic rhinitis J30.9 Assessment & Plan Assessment & Plan (1) Back Pain: Code(s): M54.9 - Dorsalgia, unspecified (2) Migraine headache: Code(s): G43.909 - Migraine, unspecified, not intractable, without status migrainosus (3) Menorrhagia: Code(s): N92.0 - Excessive and frequent menstruation with regular cycle (4) Allergic rhinitis: Code(s): J30.9 - Allergic rhinitis, unspecified Plan Medications: New cetirizine 10 mg PO DAILY 90 tabs 0RF fluticasone furoate 27.5 mcg/actuation into each nostril 2 sprays intranasal DAILY 18.2 mL 0RF
--- OUTSIDE RECORDS SUMMARY | 2025-08-06 18:14 | XMS_ITS | Encounter Summary ---
Author Organization [facility] Address [address] [place], [place] [id number] Phone Care Team Providers Care Operator Command Support Systems Name Role Phone Martha Miller MD Primary Care Provider [phone] Reason for Visit * Reason Comments Med Refill Encounter Details Date Type Department Care Team ([facility] st Contact Info) Description 12/16/2020 Refill [facility] [address] [place] [address] Martha Miller MD [address] [place] [address] Encounter for initial prescription of injectable contraceptive [...] contraceptive documented in this encounter Care Teams Operator Command Support Systems Relationship Specialty Start Date End Date Martha Miller MD [address] [place] [address] [place] [address] PCP - General 05/28/17 05/24/23 documented as of this encounter
--- OUTSIDE RECORDS SUMMARY | 2025-08-06 18:14 | XMS_ITS | Clinical Summary ---
Author Organization [facility] Address [address] [place] [phone] Phone Care Team Providers Care Clinical Cytogeneticist Scientist Name Role Phone Unavailable Primary Care Provider [...] keep her GI appointment. The medical home economics extension worker, Delano Gooden, has been trying to reach [...] AM EDT): Met with [facility], Delano Gooden, today Needs help connecting with chiropractor. Feels like she has a pinched nerve in her neck. We have discussed contacting the chiropractor in the past but she has been too busy to do this. She feels the chiropractor really helps. We will ask the medical home economics extension worker to assist her in setting up this [...] (05/06/2021 10:58 AM EDT): Was seen at [facility] in the past. No current therapist. Ignacia feels she does not need to see anybody at this time Encounters Date Type Department Care Team Description 07/23/2025 Telephone [facility] [address] [address] Angie Murdock MD Medical Records 07/20/2025 Telephone [facility] [address] [place] [address] Angie Murdock MD medical records from Last [...] Health Maintenance Due Date Last Done Comments Men B Vaccine (1 of 2 - Standard) 2018 DTaP,Tdap,and Td Vaccines (7 - Td or Tdap) 04/10/2023 04/10/2013, 01/13/2007, 01/21/2004, Additional history exists Influenza Vaccines (#1) 2025 [...] Completed 09/23/2018, 013 Procedures * Due to [place] law, this organization might not be sharing sensitive test results. Procedure Name Priority Date/Time Associated Diagnosis Comments CHLAMYDIA AND GONORRHEA, AMPLIFIED Routine 06/11/2022 12:06 PM EDT Encounter for screening examination for chlamydial infection from Last 3 Months or Most Recently Relevant to Health Maintenance Results * Due to [facility] law, this organization might not be sharing sensitive test results. * Chlamydia and Gonorrhoea, Amplified (06/11/2022 12:06 PM EDT) Chlamydia Trachomatis, DNA Probe NEGATIVE (NEG) [facility] Comment: No Chlamydia Trachomatis RNA detected in this patient's sample (REFERENCE RANGE/NORMAL VALUE: NOT DETECTED) Note: This test uses geodesy teacher- mediated amplification method to detect rRNA from C. Trachomatis URINE GC AMP PROBE NEGATIVE (NEG) [facility] Comment: No Neisseria Gonorrhoeae RNA detected in this patient's sample (REFERENCE RANGE/NORMAL VALUE: NOT DETECTED) NOTE: This test uses geodesy teacher-mediated amplification method to detect rRNA from N.Gonorrhoeae. [...] without risk of sexual abuse. Consult the [facility] if needed. Contact phone number . Therapeutic failure or success cannot be determined with the Aptima Combo2 assay since nucleic acid may persist following appropriate antimicrobial therapy. The Centers for Disease Control and Prevention (CDC) recommends confirmatory retesting using culture or a different nucleic acid amplification test when positive results occur, if indicated. Testing performed or reported by [facility], a Service of [facility], [address] [place] [address] Tho Reynolds MD, Alternative Education Teacher IA# [id number] Urine (Urine) 06/11/2022 12: 06 PM EDT 06/11/2022 9:40 PM EDT us Adriana Wilson DO LAB MICROBIOLOGY - GENERAL ORDER SANG Final Result [facility] from Last 3 Months or Most Recently Relevant to Health Maintenance
--- OUTSIDE RECORDS SUMMARY | 2025-08-06 18:14 | XMS_ITS | Encounter Summary ---
Author Organization [facility] Address [address] [place] [address] Phone Care Team Providers Care Diagnostic Technologist Name Role Phone Martha Miller MD Primary Care Provider [phone] Encounter Details Date Type Department Care Team (Late st Contact Info) Description 06/03/2017 Conversion Encounter [facility] [address] [place] [address] Social History Tobacco Use Types Packs/Day Years [...] on filedocumented in this encounter Care Teams Diagnostic Technologist Relationship Specialty Start Date End Date Martha Miller MD [address] [place] [address] PCP - General 05/28/17 05/24/23 documented as of this encounter
--- OUTSIDE RECORDS SUMMARY | 2025-08-06 18:14 | XMS_ITS | Encounter Summary ---
Author Organization [facility] Address [address] [place], [place] [id number] Phone Care Team Providers Care Dining Room Captain Name Role Phone Martha Miller MD Primary Care Provider [phone] Reason for Visit * Reason Onset Date Comments Med Refill 03/03/2021 Encounter Details Date Type Department Care Team ([facility] st Contact Info) Description 03/03/2021 Refill [facility] [address] [place] [address] Martha Miller MD [address] [place] [address] Encounter for initial prescription of injectable contraceptive [...] contraceptive documented in this encounter Care Teams Dining Room Captain Relationship Specialty Start Date End Date Martha Miller MD [address] [facility] [place] [address] PCP - General 05/28/17 05/24/23 documented as of this encounter
== END 2025-08-06 15:12 | disposition home or self-care (01) ==
LOC: HO.HMCFMS 14:27
PROVIDERS: PCP Pediatrics; Visit Provider Student in an Organized Health Care Education/Training Program
DX: M54.9 Dorsalgia, unspecified (principal); G43.909 Migraine, unspecified, not intractable, without status migrainosus; N92.0 Excessive and frequent menstruation with regular cycle; J30.9 Allergic rhinitis, unspecified

== ENCOUNTER 2025-08-06 14:27 | Outpatient (REF) | payer OTHER, SELFPAY ==
[2025-08-07 10:16] LABS: CT PCR Urine NOT DETECTED (Not Detect.); NG PCR Urine NOT DETECTED (Not Detect.)
== END 2025-08-06 14:28 | disposition home or self-care (01) ==
LOC: HO.HKASLDS 14:27
PROVIDERS: PCP Pediatrics; Visit Provider Student in an Organized Health Care Education/Training Program
DX: N92.0 Excessive and frequent menstruation with regular cycle (principal); M54.9 Dorsalgia, unspecified; G43.909 Migraine, unspecified, not intractable, without status migrainosus; F41.9 Anxiety disorder, unspecified; J30.9 Allergic rhinitis, unspecified; E78.5 Hyperlipidemia, unspecified
CPT/HCPCS: 87491; 87591